=== PATIENT | female | born 1985 | race Caucasian/White ===

== ENCOUNTER 2016-05-17 09:28 | Emergency (ER) | payer SELFPAY ==
[~2016-05-17] VITALS: Ht 154.9 cm; Wt 81.8 kg
[2016-05-17] MEDS ORDERED: METO-323 PO (10:23)
[2016-05-17] MEDS ORDERED: HYDROCODONE/ACETAMINOPHEN 5-325 MG TABLET PO ONE (11:30)
[2016-05-17] MEDS ORDERED: KETOROLAC TROMETHAMINE 60 MG/2 ML VIAL IM ONE (11:30)
[2016-05-17 13:34] VITALS: BP 100/67
== END 2016-05-17 13:38 | disposition home or self-care (01) ==
LOC: EMS 09:30
DX: S30.0XXA Contusion of lower back and pelvis, initial encounter (principal); J45.909 Unspecified asthma, uncomplicated; I10 Essential (primary) hypertension; F17.210 Nicotine dependence, cigarettes, uncomplicated; W01.0XXA Fall on same level from slipping, tripping and stumbling without subsequent striking against object, initial encounter; Y93.E1 Activity, personal bathing and showering; Y92.89 Other specified places as the place of occurrence of the external cause; Y99.8 Other external cause status
CPT/HCPCS: 96372; 99283; J1885

== ENCOUNTER 2017-04-02 15:32 | Emergency (ER) | payer SELFPAY ==
[~2017-04-02] VITALS: Ht 160 cm; Wt 81.8 kg
[~2017-04-02 15:32] MED LIST: METO25XL PO
[2017-04-02 15:38] VITALS: BP 125/80
== END 2017-04-02 17:42 | disposition left against medical advice (07) ==
LOC: EMS 15:32
DX: R19.7 Diarrhea, unspecified (principal); Z53.21 Procedure and treatment not carried out due to patient leaving prior to being seen by health care provider